=== PATIENT | female | born 1945 | race Caucasian/White ===

== ENCOUNTER → 2016-10-04 | Outpatient (CLI) | payer MEDICARE ==
--- NOTE | 2016-10-04 09:48 | CT ---
EXAMINATION TYPE: CT abdomen pelvis w con DATE OF EXAM: 10/04/2016 8:55 AM COMPARISON: NONE INDICATION: Mid abd pain DLP: 438 mGycm, Automated exposure control for dose reduction was used. CONTRAST: 100 mL of Omnipaque 300. Study performed with Oral Contrast TECHNIQUE: Axial images were obtained from above the diaphragm to the pubic rami in the axial plane a t 5 mm thick sections. Reconstructed images are reviewed on the computer in the coronal plane. FINDINGS: Limited CT sections are obtained the lung bases. The lung bases are clear. CT ABDOMEN: Liver: Normal Spleen: Normal Pancreas: Normal Adrenal glands: The adrenal glands are normal. Gallbladder: Normal Kidneys: No masses are evident. No hydronephrosis is present. There is a 2.1 cm cyst measuring 9 [place] units on the anterior lateral left mid kidney. Couple of tiny cortical renal cysts are prese nt on the right kidney, the largest in the anterior portion measuring 8 mm approximately 30 Hounsfiel d units, this is too small to reliably classify as a simple cyst. Delayed images were obtained throu gh the kidneys, which remain otherwise unremarkable. Aorta: Vascular calcification is within the aorta. Inferior vena cava: Normal. CT PELVIS: Bilateral inguinal lymph nodes are present measuring 1.0-1.1 cm each There is some thickening of the sigmoid colon most notably within its proximal portion. This could al so be related to incomplete distention. Inflammatory change adjacent identified. Significant divertic ulosis is not evident. There are loops of bowel which are incompletely distended or lack oral contras t limiting their evaluation. Appendix: Not identified Urinary bladder: Normal. Genitourinary structures: Uterus and ovaries are not identified. No free fluid is within the pelvis. Osseous structures: No suspicious lytic or sclerotic lesions. Scoliosis and degenerative disc changes are at the thoracolumbar junction bone islands within the right femoral head IMPRESSIONS: 1. There may be some mild colitis of the proximal sigmoid colon. This could be related to incomplete distention. Correlate with the patient's symptoms. 2. Couple of enlarged inguinal lymph nodes present bilaterally. 3. Renal cysts
== END | disposition home or self-care (01) ==
LOC: RADCTMAIN 08:18
PROVIDERS: ATTEND Family Medicine
DX: N28.1 Cyst of kidney, acquired (principal); R60.0 Localized edema; R10.9 Unspecified abdominal pain
CPT/HCPCS: 74177; Q9967

== ENCOUNTER 2017-04-13 07:26 | Day surgery (SDC) | payer MEDICARE ==
[2017-04-07 12:18] VITALS: BMI 27.0
[~2017-04-13 07:26] MED LIST: LACTATED RINGERS 1,000 ML IV SCH; LIDOCAINE 1% 20 ML VIAL (10MG/ML) FOR IV START INTRADERMA PRN
[2017-04-13 07:48] VITALS: RESP 16; TEMP 97.6
[2017-04-13] MEDS ORDERED: PROPOFOL 10 MG/ML 20 ML VIAL IV ONE (09:06)
[2017-04-13] MEDS ORDERED: LIDOCAINE 1% INJ 10MG/ML (20 ML MDV) ONE (09:06)
--- NOTE | 2017-04-13 09:10 | P.GSHP ---
History of Present Illness H&P Date: 04/13/17 Chief Complaint: GERD This a 71-year-old female referred from Dr. day. Patient has safer EGD. She's had issues with GERD. Past Medical History Past Medical History: GERD/Reflux, Hyperlipidemia, Hypertension, Thyroid Disorder Additional Past Medical History / Comment(s): shingles 01/2015 History of Any Multi-Drug Resistant Organisms: None Reported Past Surgical History: Hysterectomy, Orthopedic Surgery Additional Past Surgical History / Comment(s): right shoulder surgery, Colonoscopy-12/01/16 Past Anesthesia/Blood Transfusion Reactions: No Reported Reaction Smoking Status: Former smoker - Past Family History Father Family Medical History: Cancer Medications and Allergies Home Medications Medication Instructions Recorded Confirmed Type Aspirin 325 mg PO DAILY 11/25/16 04/13/17 History Cholecalciferol [Vitamin D3] 2,000 unit PO DAILY 11/25/16 04/13/17 History Chromium Picolinate 1,000 mcg PO DAILY 11/25/16 04/13/17 History Estradiol [Estrace] 1 mg PO DAILY 11/25/16 04/13/17 History Fexofenadine HCl [Melissa Allergy] 60 mg PO DAILY 11/25/16 04/13/17 History Krill Oil 500 mg PO DAILY 11/25/16 04/13/17 History Meloxicam 15 mg PO DAILY 11/25/16 04/13/17 History S-Adenosylmethionine Sul Tosyl 200 mg PO DAILY 11/25/16 04/13/17 History [Monty-E] Ubidecarenone [Co Q-10] 30 mg PO DAILY 11/25/16 04/13/17 History amLODIPine [Norvasc] 10 mg PO DAILY 11/25/16 04/13/17 History Famotidine [Pepcid] 20 mg PO DAILY 04/07/17 04/13/17 History Levothyroxine Sodium [Synthroid] 125 mcg PO DAILY 04/07/17 04/13/17 History Losartan Potassium 100 mg PO DAILY 04/07/17 04/13/17 History Pantoprazole [Protonix] 40 mg PO DAILY 04/07/17 04/13/17 History buPROPion HCL [buPROPion HCL SR] 150 mg PO BID 04/07/17 04/13/17 History Allergies Allergy/AdvReac Type Severity Reaction Status Date / Time No Known Allergies Allergy Verified 04/13/17 07:44 Surgical - Exam Vital Signs Temp Pulse Resp BP 97.6 F 92 16 127/68 04/13/17 07:47 04/13/17 07:47 04/13/17 07:47 04/13/17 07:47 - General well developed, no distress - Eyes PERRL - ENT normal pinna - Neck no masses - Respiratory normal expansion - Cardiovascular Rhythm: regular - Abdomen Abdomen: soft, non tender Assessment and Plan Plan: GERD. We'll perform EGD.
--- NOTE | 2017-04-13 09:17 | P.OP ---
Date of Procedure: 04/13/17 Preoperative Diagnosis: GERD Postoperative Diagnosis: Antral gastritis Hiatal hernia Mild esophagitis Procedure(s) Performed: EGD Implants: Anesthesia: MAC Surgeon: Efrem Nina Pathology: other (Antrum, esophagus) Condition: stable Disposition: PACU Indications for Procedure: Operative Findings: Description of Procedure: The patient's placed on the endoscopy table in the lateral position. She received IV sedation. The gastroscope some placed oropharynx passed in the esophagus and stomach. Scope was then placed through the pylorus. The first and second portion of the duodenum appeared normal. The scope was then brought back into the antrum and this is minimally inflated biopsies performed. Scope was retroflexed and there was a hiatal hernia. The GE junction was at 38 cm. The distal esophagus appeared mildly inflamed a biopsies performed. The proximal esophagus appeared normal. Scope was withdrawn from patient.
[2017-04-13 09:45] VITALS: BP 112/68; PULSE 83
== END 2017-04-13 09:51 | disposition home or self-care (01) ==
LOC: ORWHC2ENDO 07:26
PROVIDERS: ATTEND Surgery
DX: K29.50 Unspecified chronic gastritis without bleeding (principal); K21.0 Gastro-esophageal reflux disease with esophagitis; K44.9 Diaphragmatic hernia without obstruction or gangrene; E78.5 Hyperlipidemia, unspecified; E07.9 Disorder of thyroid, unspecified; J44.9 Chronic obstructive pulmonary disease, unspecified; I10 Essential (primary) hypertension; Z79.82 Long term (current) use of aspirin; Z79.899 Other long term (current) drug therapy; Z87.891 Personal history of nicotine dependence
CPT/HCPCS: 88305; 88342; 43239; J2001; J2704

== ENCOUNTER 2017-05-03 11:36 | Day surgery (SDC) | payer MEDICARE ==
[2017-04-27 10:05] VITALS: BMI 27.0
[~2017-05-03 11:36] MED LIST changes: +DEXAMETHASONE SOD PHOSPHATE 10 MG/ML 1 ML VIAL IV ONE; +HEPARIN SODIUM,PORCINE 5,000 UNIT/ML 1 ML VIAL SQ ONE; +ONDANSETRON 4 MG/2 ML VIAL IVP ONE; +ceFAZolin 2 GM in SODIUM CHLORIDE 0.9% 100 ML IVPB ONE
--- NOTE | 2017-05-03 13:40 | P.GSHP ---
History of Present Illness H&P Date: 05/03/17 Chief Complaint: GERD This is a 71-year-old female for from Dr. Estefani day.The patient has had long- standing problems with reflux esophagitis. The patient underwent recent EGD is found have evidence of esophagitis. Patient has been well informed on the procedure of laparoscopic Jonna fundoplication. The patient is aware the risk of the conversion to the open procedure, risk of injury to the stomach, liver and spleen. The patient is also a risk of recurrent GERD and dysphagia symptoms. The patient understands there is a postoperative diet of full liquids for 2 weeks after surgery. - Constitutional Constitutional: Reports as per HPI Past Medical History Past Medical History: GERD/Reflux, Hyperlipidemia, Hypertension, Thyroid Disorder Additional Past Medical History / Comment(s): HIATAL HERNIA. shingles 01/2015 History of Any Multi-Drug Resistant Organisms: None Reported Past Surgical History: Hysterectomy, Orthopedic Surgery Additional Past Surgical History / Comment(s): EGD 04-13-17. right shoulder surgery, Colonoscopy-12/01/16 Past Anesthesia/Blood Transfusion Reactions: No Reported Reaction Smoking Status: Former smoker - Past Family History Father Family Medical History: Cancer Medications and Allergies Home Medications Medication Instructions Recorded Confirmed Type Aspirin 325 mg PO DAILY 11/25/16 04/27/17 History Cholecalciferol [Vitamin D3] 2,000 unit PO DAILY 11/25/16 04/27/17 History Chromium Picolinate 1,000 mcg PO DAILY 11/25/16 04/27/17 History Estradiol [Estrace] 1 mg PO DAILY 11/25/16 04/27/17 History Fexofenadine HCl [Melissa Allergy] 60 mg PO DAILY 11/25/16 04/27/17 History Krill Oil 500 mg PO DAILY 11/25/16 04/27/17 History Meloxicam 15 mg PO DAILY 11/25/16 04/27/17 History S-Adenosylmethionine Sul Tosyl 200 mg PO DAILY 11/25/16 04/27/17 History [Monty-E] Ubidecarenone [Co Q-10] 30 mg PO DAILY 11/25/16 04/27/17 History amLODIPine [Norvasc] 10 mg PO DAILY 11/25/16 04/27/17 History Famotidine [Pepcid] 20 mg PO DAILY 04/07/17 04/27/17 History Levothyroxine Sodium [Synthroid] 125 mcg PO DAILY 04/07/17 04/27/17 History Losartan Potassium 100 mg PO DAILY 04/07/17 04/27/17 History Pantoprazole [Protonix] 40 mg PO DAILY 04/07/17 04/27/17 History buPROPion HCL [buPROPion HCL SR] 150 mg PO BID 04/07/17 04/27/17 History Calcium Carbonate/Vitamin D3 1 tab PO DAILY 04/27/17 04/27/17 History [Calcium 600-Vit D3 200 Tablet] Simvastatin [Zocor] 20 mg PO DAILY 04/27/17 04/27/17 History Allergies Allergy/AdvReac Type Severity Reaction Status Date / Time No Known Allergies Allergy Verified 04/27/17 10:00 Surgical - Exam - General well developed, no distress - Eyes PERRL - ENT normal pinna - Neck no masses - Respiratory normal expansion - Cardiovascular Rhythm: regular - Abdomen Abdomen: soft, non tender Assessment and Plan Plan: GERD. We will perform laparoscopic Jonna fundoplication.
[2017-05-03] MEDS ORDERED: MIDAZOLAM 2 MG/2 ML VIAL IVP ONE (13:45)
[2017-05-03] MEDS ORDERED: LACTATED RINGERS 1,000 ML IV ONE ×2 (13:45→16:38)
[2017-05-03] MEDS ORDERED: SUCCINYLCHOLINE CHLORIDE 100 MG/5 ML SYR IV ONE (14:38)
[2017-05-03] MEDS ORDERED: PROPOFOL 10 MG/ML 20 ML VIAL IV ONE (14:38)
[2017-05-03] MEDS ORDERED: GLYCOPYRROLATE 0.2 MG/ML 2 ML VIAL ONE (14:38)
[2017-05-03] MEDS ORDERED: PHENYLEPHRINE-0.9% NACL SYG 1 MG/10 ML SYRINGE ONE (14:38)
[2017-05-03] MEDS ORDERED: VECURONIUM 10 MG VIAL IV ONE (14:38)
[2017-05-03] MEDS ORDERED: fentaNYL (PF) 50 MCG/ML 2 ML AMP ONE (14:38)
[2017-05-03] MEDS ORDERED: NEOSTIGMINE 1 MG/ML 10 ML VIAL ONE (14:38)
[2017-05-03] MEDS ORDERED: LIDOCAINE 1% INJ 10MG/ML (20 ML MDV) ONE (14:38)
[2017-05-03] MEDS ORDERED: BUPIVACAINE (PF) 0.25% 30 ML VIAL SQ ONE ×2 (15:05→15:07)
[2017-05-03] MEDS ORDERED: LIDOCAINE 2%-EPI 1:100,000 20 ML VIAL SQ ONE ×2 (15:05→15:07)
[2017-05-03] MEDS ORDERED: HYDROmorphone 1 MG/ML 1 ML SYRINGE IVP PRN (15:45)
--- NOTE | 2017-05-03 15:45 | P.OP ---
Date of Procedure: 05/03/17 Preoperative Diagnosis: GERD Postoperative Diagnosis: GERD Procedure(s) Performed: Laparoscopic Jonna fundoplication Implants: Anesthesia: CHERYLE Surgeon: Efrem Nina Estimated Blood Loss (ml): 5 Pathology: none sent Condition: stable Disposition: PACU Indications for Procedure: Operative Findings: Description of Procedure: HThe patient was placed on the operating table in the supine position. The patient received general anesthesia. And was placed in dorsal lithotomy position. The patient was prepped and draped in the usual sterile fashion. The skin incision sites were anesthetized with 1% local Xylocaine. The skin was incised in the left periumbilical area and then using a blade less 5 mm trocar under direct visualization panel cavity was entered. After adequate insufflation the laparoscope was then placed into the peritoneal cavity. Next a 5 mm trochars placed in the right epigastric position. Another 5 millimeter trocar the right lateral position. Another 5 millimeter trocar in the left lateral position a 5 mm trocar is placed in the left epigastric position. And then the initial 5 mm trocar was exchanged for a 10 mm trocar. The left lateral lobe liver was retracted. The hernia was seen. The crural defect was then dissected using the Harmonic scissors device. A 360 crural dissection was performed the esophagus stomach was reduced back into the peritoneal Cavity. The crural defect was then closed using 2-0 Ethibond suture. Next the fundus of the stomach was mobilized using the [place] scissors device. and then a 58-Iraqi bougie dilator was placed oropharynx passed into the esophagus and stomach the fundal plication wrap was then performed by grasping the fundus posteriorly and bringing it around the esophagus and stomach fundoplication was then performed using 2-0 Ethibond suture. Care was taken that the fundal location rested over top of the intra-abdominal esophagus. There was no injury seen to the stomach or esophagus. The dilator was then withdrawn. The abdomen was irrigated there is no bleeding seen. The trochars were then withdrawn and then skin incision sites were closed using 3-0 Monocryl suture Steri-Strips are applied. Patient thought procedure well and sent to recovery room in stable condition.
[2017-05-03] MEDS: HYDROmorphone 1 MG/ML 1 ML SYRINGE IVP PRN ×2 (15:51→16:00)
[2017-05-03] MEDS: D5-0.45% NACL WITH KCL 20MEQ/L 1,000 ML IV SCH (18:32)
[2017-05-04] MEDS: D5-0.45% NACL WITH KCL 20MEQ/L 1,000 ML IV SCH ×2 (03:46→08:23)
[2017-05-04] MEDS ORDERED: ENOXAPARIN 40 MG/0.4 ML SYRINGE SQ SCH (09:00)
--- NOTE | 2017-05-04 09:38 | FL ---
EXAMINATION TYPE: FL UGI w esophagus DATE OF EXAM: 05/04/2017 COMPARISON: NONE HISTORY: Jonna, postoperative state. TECHNIQUE: A single contrast UGI study is performed. 37 seconds of fluoroscopy time was utilized. FINDINGS: The esophagus shows delayed subsequent emptying into the stomach. No evidence of hiatal hernia or st ricture noted. Small outpouching is seen medial to the gastric fundus. Contrast within this outpouchi ng is nonmobile, and therefore unrelated to a leak. The stomach shows normal distensibility, peristalsis, and mucosal folds. No significant gastroesopha geal reflux was seen during real time performance of this study. The duodenal bulb is unremarkable. IMPRESSION: Postoperative edema. No evidence of obstruction or leak. Study.
[2017-05-04] MEDS ORDERED: ACETAMINOPHEN TAB 325 MG TAB PO PRN (10:55)
--- NOTE | 2017-05-04 11:45 | P.DS ---
Providers Date of admission: 05/03/17 Expected date of discharge: 05/04/17 Attending physician: Efrem Nina Consults: 05/03/17 15:45 Consult Physician Routine Consulting Provider: Grant Hernandez Consult Reason/Comments: Medical management Do you want consulting provider notified?: Yes Primary care physician: Estefani [facility] Course: 71-year-old female who primary care providers Dr.ira day who has a history of reflex esophagitis. Patient underwent a recent EGD and was found to have evidence of esophagitis. Patient was seen by surgical service elected to proceed with the procedure of a laparoscopic Jonna fundoplication for treatment of reoccurring symptomatic reflux esophagitis. The procedure was done on May 03 there were no postop events patient was felt to be hemodynamically stable and appropriate proceed with a discharge to home. Patient did receive postoperative diet instructions was to be maintained on a full liquid diet for 2 weeks after surgery Impression discharge diagnosis Status post May 03 laparoscopic Jonna fundoplication for symptomatic esophagitis reflux History of hiatal hernia Esophageal reflex Hypertension Hyperlipidemia The above impression and plan of care have been discussed and directed by signing physician. Elyse Winter nurse practitioner acting as scribe for signing physician. Plan - Discharge Summary New Discharge Prescriptions: Continue Aspirin 325 mg PO DAILY Cholecalciferol [Vitamin D3] 2,000 unit PO DAILY Fexofenadine HCl [Melissa Allergy] 60 mg PO DAILY amLODIPine [Norvasc] 10 mg PO DAILY Meloxicam 15 mg PO DAILY Estradiol [Estrace] 1 mg PO DAILY Ubidecarenone [Co Q-10] 30 mg PO DAILY S-Adenosylmethionine Sul Tosyl [Monty-E] 200 mg PO DAILY Krill Oil 500 mg PO DAILY Chromium Picolinate 1,000 mcg PO DAILY Levothyroxine Sodium [Synthroid] 125 mcg PO DAILY Famotidine [Pepcid] 20 mg PO DAILY buPROPion HCL [buPROPion HCL SR] 150 mg PO BID Pantoprazole [Protonix] 40 mg PO DAILY Losartan Potassium 100 mg PO DAILY Calcium Carbonate/Vitamin D3 [Calcium 600-Vit D3 200 Tablet] 1 tab PO DAILY Simvastatin [Zocor] 20 mg PO DAILY Discharge Medication List Aspirin 325 mg PO DAILY 11/25/16 [History] Cholecalciferol [Vitamin D3] 2,000 unit PO DAILY 11/25/16 [History] Chromium Picolinate 1,000 mcg PO DAILY 11/25/16 [History] Estradiol [Estrace] 1 mg PO DAILY 11/25/16 [History] Fexofenadine HCl [Melissa Allergy] 60 mg PO DAILY 11/25/16 [History] Krill Oil 500 mg PO DAILY 11/25/16 [History] Meloxicam 15 mg PO DAILY 11/25/16 [History] S-Adenosylmethionine Sul Tosyl [Monty-E] 200 mg PO DAILY 11/25/16 [History] Ubidecarenone [Co Q-10] 30 mg PO DAILY 11/25/16 [History] amLODIPine [Norvasc] 10 mg PO DAILY 11/25/16 [History] Famotidine [Pepcid] 20 mg PO DAILY 04/07/17 [History] Levothyroxine Sodium [Synthroid] 125 mcg PO DAILY 04/07/17 [History] Losartan Potassium 100 mg PO DAILY 04/07/17 [History] Pantoprazole [Protonix] 40 mg PO DAILY 04/07/17 [History] buPROPion HCL [buPROPion HCL SR] 150 mg PO BID 04/07/17 [History] Calcium Carbonate/Vitamin D3 [Calcium 600-Vit D3 200 Tablet] 1 tab PO DAILY 07/04 [History] Simvastatin [Zocor] 20 mg PO DAILY 04/27/17 [History] Follow up Appointment(s)/Referral(s): Efrem Nina MD [STAFF PHYSICIAN] - 1 Week Estefani Wright DO [Primary Care Provider] - 1 Week Activity/Diet/Wound Care/Special Instructions: Postprocedure liquid diet for 2 weeks Discharge Disposition: HOME SELF-CARE
[2017-05-04 11:53] VITALS: BP 136/78; PULSE 104; RESP 16; TEMP 97.4
--- NOTE | 2017-05-04 12:38 | P.CONS ---
History of Present Illness - Reason for Consult Consult date: 05/04/17 Medical management Requesting physician: Efrem Nina - Chief Complaint Status post Jonna fundal plication - History of Present Illness This is a 71-year-old female with a known history of hypertension, hyperlipidemia and hypothyroidism. She presents the hospital for a niece and publication. Surgery was completed yesterday. She tolerated surgery well with no complications. She tolerating a clear liquid diet. The upper GI with the esophagus shows postop edema with no evidence of obstruction or leak. Patient denies any chest pain or shortness of breath. Denies any nausea or vomiting. She is passing gas no bowel movement yet. Denies any burning with urination. Surgeries planning discharged afternoon. Review of Systems Please refer to HPI otherwise unremarkable Past Medical History Past Medical History: GERD/Reflux, Hyperlipidemia, Hypertension, Thyroid Disorder Additional Past Medical History / Comment(s): HIATAL HERNIA. shingles 01/2015 History of Any Multi-Drug Resistant Organisms: None Reported Past Surgical History: Hysterectomy, Orthopedic Surgery Additional Past Surgical History / Comment(s): EGD 04-13-17. right shoulder surgery, Colonoscopy-12/01/16 Past Anesthesia/Blood Transfusion Reactions: No Reported Reaction Past Psychological History: No Psychological Hx Reported Smoking Status: Former smoker Past Alcohol Use History: None Reported Additional Past Alcohol Use History / Comment(s): QUIT SMOKING 2009 Past Drug Use History: None Reported - Past Family History Father Family Medical History: Cancer Medications and Allergies Home Medications Medication Instructions Recorded Confirmed Type Aspirin 325 mg PO DAILY 11/25/16 05/03/17 History Cholecalciferol [Vitamin D3] 2,000 unit PO DAILY 11/25/16 05/03/17 History Chromium Picolinate 1,000 mcg PO DAILY 11/25/16 05/03/17 History Estradiol [Estrace] 1 mg PO DAILY 11/25/16 05/03/17 History Fexofenadine HCl [Melissa Allergy] 60 mg PO DAILY 11/25/16 05/03/17 History Krill Oil 500 mg PO DAILY 11/25/16 05/03/17 History Meloxicam 15 mg PO DAILY 11/25/16 05/03/17 History S-Adenosylmethionine Sul Tosyl 200 mg PO DAILY 11/25/16 05/03/17 History [Monty-E] Ubidecarenone [Co Q-10] 30 mg PO DAILY 11/25/16 05/03/17 History amLODIPine [Norvasc] 10 mg PO DAILY 11/25/16 05/03/17 History Famotidine [Pepcid] 20 mg PO DAILY 04/07/17 05/03/17 History Levothyroxine Sodium [Synthroid] 125 mcg PO DAILY 04/07/17 05/03/17 History Losartan Potassium 100 mg PO DAILY 04/07/17 05/03/17 History Pantoprazole [Protonix] 40 mg PO DAILY 04/07/17 05/03/17 History buPROPion HCL [buPROPion HCL SR] 150 mg PO BID 04/07/17 05/03/17 History Calcium Carbonate/Vitamin D3 1 tab PO DAILY 04/27/17 05/03/17 History [Calcium 600-Vit D3 200 Tablet] Simvastatin [Zocor] 20 mg PO DAILY 04/27/17 05/03/17 History Allergies Allergy/AdvReac Type Severity Reaction Status Date / Time adhesive tape AdvReac Rash/Hives Verified 05/03/17 14:12 Physical Exam Vitals: Vital Signs Temp Pulse Pulse Pulse Resp BP Pulse Ox 05/04/17 11:30 97.4 F L 104 H 16 136/78 95 05/04/17 08:12 96.9 F L 106 H 14 126/73 95 05/04/17 05:22 100 20 154/81 95 05/04/17 00:00 16 05/03/17 21:48 98 F 112 H 16 137/67 96 05/03/17 20:30 93 20 05/03/17 19:48 113 H 141/72 94 L 05/03/17 18:48 93 129/77 97 05/03/17 18:18 106 H 151/101 05/03/17 17:48 82 142/64 95 05/03/17 17:33 95 138/79 96 05/03/17 17:18 104 H 138/86 86 L 05/03/17 16:57 97.3 F L 87 16 119/61 89 L 05/03/17 16:30 89 16 148/72 92 L 05/03/17 16:15 92 16 150/67 94 L 05/03/17 16:00 85 16 144/67 100 05/03/17 15:45 96 16 140/64 100 05/03/17 15:38 97.8 F 102 H 10 L 148/67 100 05/03/17 14:00 65 16 127/76 93 L 05/03/17 13:45 97.0 F L 67 16 157/96 93 L Intake and Output 05/03/17 05/04/17 05/04/17 22:59 06:59 14:59 Intake Total 1050 200 480 Output Total 755 2150 375 Balance 295 -1950 105 Intake: IV 850 Oral 200 200 480 Output: Urine 750 2150 375 Estimated Blood Loss 5 Other: Voiding Method Toilet Toilet # Voids 1 1 Weight 64.864 kg 64.864 kg Patient Weight 05/05/17 06:59 Weight 64.864 kg Head normocephalic Neck supple Lungs clear to auscultation bilaterally no wheezing or crackles Heart regular rate and rhythm S1-S2, no rub or gallop Abdomen is soft nontender nondistended positive bowel sounds no hepatosplenomegaly Extremities no edema Neuro alert and orientated to 3 Assessment and Plan Plan: 1. GERD: Status post Jonna for complication. Upper GI shows postop edema. No evidence of obstruction or leak. Surgical service has cleared her for discharge 2. Essential hypertension: Blood pressure stable continue home medications 3. Hypothyroidism continue Synthroid 4. Hyperlipidemia continue statin Thank you for this consultation. Patient is medically stable for discharge. We 'll have her follow-up with her PCP in 1 week. Time with Patient: Greater than 30 (Greater than 50% of the total time spent in counseling and coordination of care.I performed an examination of the patient and discussed their management with the physician Roofing Subcontractor. I have reviewed the Physician Roofing Subcontractor's notes and agree with the documented findings and plan of care)
== END 2017-05-04 12:12 | disposition home or self-care (01) ==
LOC: OR 11:36 → 6PED 15:38 → OR 05-04 12:12
PROVIDERS: ATTEND Surgery
DX: K21.0 Gastro-esophageal reflux disease with esophagitis (principal); I10 Essential (primary) hypertension; E78.5 Hyperlipidemia, unspecified; R13.10 Dysphagia, unspecified; E03.9 Hypothyroidism, unspecified; K44.9 Diaphragmatic hernia without obstruction or gangrene; Z87.891 Personal history of nicotine dependence; Z79.82 Long term (current) use of aspirin; Z79.899 Other long term (current) drug therapy; Z90.710 Acquired absence of both cervix and uterus
CPT/HCPCS: 93005; 74240; 43280; J2250; J1644; J1100; J2710; Q9967; J0690; J2405; J2001; J1650; J3010; J1170; J2370; J0330; J2704

== ENCOUNTER 2019-08-27 07:36 | Day surgery (SDC) | payer MEDICARE ==
[2019-08-23 09:36] VITALS: BMI 27.7
[~2019-08-27 07:36] MED LIST changes: -HEPARIN SODIUM,PORCINE 5,000 UNIT/ML 1 ML VIAL SQ ONE; -ONDANSETRON 4 MG/2 ML VIAL IVP ONE; -ceFAZolin 2 GM in SODIUM CHLORIDE 0.9% 100 ML IVPB ONE
[2019-08-27 08:21] VITALS: RESP 16; TEMP 97.7
[2019-08-27] MEDS ORDERED: LIDOCAINE 1% INJ 10MG/ML (20 ML MDV) ONE (08:53)
[2019-08-27] MEDS ORDERED: PROPOFOL 10 MG/ML 20 ML VIAL IV ONE (08:53)
--- NOTE | 2019-08-27 08:56 | P.GSHP ---
History of Present Illness H&P Date: 08/27/19 Chief Complaint: dysphagia this a 73-year-old female with history of dysphagia. Patient has previous repair of hiatal hernia. she presents today for EGD. Past Medical History Past Medical History: GERD/Reflux, Hyperlipidemia, Hypertension, Thyroid Disorder Additional Past Medical History / Comment(s): HX-HIATAL HERNIA. shingles 01/2015 History of Any Multi-Drug Resistant Organisms: None Reported Past Surgical History: Hernia Repair, Hysterectomy, Orthopedic Surgery Additional Past Surgical History / Comment(s): EGD 04-13-17. right shoulder surgery, Colonoscopy-12/01/16. hiatal hernia repair Past Anesthesia/Blood Transfusion Reactions: No Reported Reaction Smoking Status: Former smoker - Past Family History Father Family Medical History: Cancer Medications and Allergies Home Medications Medication Instructions Recorded Confirmed Type Aspirin 325 mg PO DAILY 11/25/16 08/27/19 History Cholecalciferol [Vitamin D3 (25 5,000 unit PO DAILY 11/25/16 08/27/19 History Mcg = 1000 Iu)] Estradiol [Estrace] 1 mg PO DAILY 11/25/16 08/27/19 History Meloxicam 15 mg PO DAILY 11/25/16 08/27/19 History Ubidecarenone [Co Q-10] 400 mg PO DAILY 11/25/16 08/27/19 History amLODIPine [Norvasc] 10 mg PO DAILY 11/25/16 08/27/19 History Levothyroxine Sodium [Synthroid] 125 mcg PO DAILY 04/07/17 08/27/19 History Losartan Potassium 100 mg PO DAILY 04/07/17 08/27/19 History Pantoprazole [Protonix] 40 mg PO DAILY 04/07/17 08/27/19 History buPROPion HCL [buPROPion HCL SR] 150 mg PO DAILY 04/07/17 08/27/19 History Simvastatin [Zocor] 20 mg PO DAILY 04/27/17 08/27/19 History Chromium Picolinate 1,000 mcg PO DAILY 08/23/19 08/27/19 History Fexofenadine HCl [Melissa Allergy] 180 mg PO DAILY 08/23/19 08/27/19 History S-Adenosylmethionine Sul Tosyl 200 mg PO DAILY 08/23/19 08/27/19 History [Monty-E] Vitamin B Complex 1 each PO DAILY 08/23/19 08/27/19 History traMADol HCL [Ultram] 50 mg PO BID 08/23/19 08/27/19 History Allergies Allergy/AdvReac Type Severity Reaction Status Date / Time adhesive tape AdvReac Rash/Hives Verified 08/27/19 08:08 Surgical - Exam Vital Signs Temp Pulse Resp BP Pulse Ox 97.7 F 100 16 142/67 97 08/27/19 08:20 08/27/19 08:20 08/27/19 08:20 08/27/19 08:20 08/27/19 08:20 - General well developed, well nourished, no distress - Eyes PERRL - ENT normal pinna - Neck no masses - Respiratory normal expansion - Cardiovascular Rhythm: regular - Abdomen Abdomen: soft, non tender Assessment and Plan Assessment: history of dysphagia. We'll perform EGD.
--- NOTE | 2019-08-27 09:07 | P.OP ---
Date of Procedure: 08/27/19 Preoperative Diagnosis: dysphagia Postoperative Diagnosis: antral gastritis Possible GE junction stricture Procedure(s) Performed: EGD Anesthesia: MAC Surgeon: Efrem Nina Pathology: other (antrum) Condition: stable Disposition: PACU Description of Procedure: the patient's placed on the endoscopy table in the lateral position. She received IV sedation. The gastroscope placed oropharynx passed in the esophagus and into the stomach. Scope was then placed through the pylorus. The first and second portion of the duodenum. Normal. Scope was then brought back the antrum this is minimally inflamed. Biopsies performed. There was a possible healing antral ulcer. This area is biopsied as well. Scope was unretroflexed and remainder stomach appeared normal. The plication wrap may have slipped slightly off of the GE junction. Thegastroscope was then brought back slowly GE junction. A 20 mm balloon was held across the GE junction. No obvious suture was seen. The balloon was then removed. The esophagus appeared normal. Scope was withdrawn for patient.
[2019-08-27 09:46] VITALS: BP 112/68; PULSE 85
== END 2019-08-27 09:44 | disposition home or self-care (01) ==
LOC: ORWHC2ENDO 07:36
PROVIDERS: ATTEND Surgery
DX: R13.10 Dysphagia, unspecified (principal); K29.50 Unspecified chronic gastritis without bleeding; E78.5 Hyperlipidemia, unspecified; I10 Essential (primary) hypertension; E07.9 Disorder of thyroid, unspecified; Z90.710 Acquired absence of both cervix and uterus; Z87.891 Personal history of nicotine dependence; Z80.9 Family history of malignant neoplasm, unspecified; Z79.1 Long term (current) use of non-steroidal anti-inflammatories (NSAID); Z79.82 Long term (current) use of aspirin; Z79.890 Hormone replacement therapy; Z79.891 Long term (current) use of opiate analgesic; Z79.899 Other long term (current) drug therapy; Z91.09 Other allergy status, other than to drugs and biological substances; Z97.2 Presence of dental prosthetic device (complete) (partial)
CPT/HCPCS: 88305; 43239; 43249; J2001; J2704; C1726

== ENCOUNTER 2021-08-26 09:05 | Day surgery (SDC) | payer MEDICARE ==
[2021-08-24 15:28] VITALS: BMI 25.4
[~2021-08-26 09:05] MED LIST changes: -DEXAMETHASONE SOD PHOSPHATE 10 MG/ML 1 ML VIAL IV ONE; +LIDOCAINE 1% (10MG/ML) FOR IV START INTRADERMA PRN; -LIDOCAINE 1% 20 ML VIAL (10MG/ML) FOR IV START INTRADERMA PRN
[2021-08-26 09:55] VITALS: RESP 16; TEMP 97.5
[2021-08-26] MEDS ORDERED: PROPOFOL 10 MG/ML 20 ML VIAL IV ONE (10:44)
[2021-08-26] MEDS ORDERED: LIDOCAINE 1% INJ 10MG/ML (20 ML MDV) ONE (10:44)
--- NOTE | 2021-08-26 10:46 | P.GSHP ---
History of Present Illness H&P Date: 08/26/21 Chief Complaint: Anemia Cyst 75-year-old female undergoing workup for anemia. Patient is today for EGD and colonoscopy. Past Medical History Past Medical History: GERD/Reflux, Hyperlipidemia, Hypertension, Thyroid Disorder Additional Past Medical History / Comment(s): HX-HIATAL HERNIA. shingles 01/2015 History of Any Multi-Drug Resistant Organisms: None Reported Past Surgical History: Hernia Repair, Hysterectomy, Orthopedic Surgery Additional Past Surgical History / Comment(s): EGD 04-13-17. right shoulder surgery, Colonoscopy-12/01/16. hiatal hernia repair Past Anesthesia/Blood Transfusion Reactions: No Reported Reaction Smoking Status: Former smoker - Past Family History Father Family Medical History: Cancer Medications and Allergies Home Medications Medication Instructions Recorded Confirmed Type Aspirin 325 mg PO DAILY 11/25/16 08/24/21 History Cholecalciferol [Vitamin D3 (25 250 mcg PO DAILY 11/25/16 08/24/21 History Mcg = 1000 Iu)] Meloxicam 15 mg PO DAILY 11/25/16 08/24/21 History Ubidecarenone [Co Q-10] 200 mg PO DAILY 11/25/16 08/24/21 History amLODIPine [Norvasc] 10 mg PO HS 11/25/16 08/24/21 History estradioL [Estrace] 1 mg PO HS 11/25/16 08/24/21 History Levothyroxine Sodium [Synthroid] 125 mcg PO HS 04/07/17 08/24/21 History Losartan Potassium 100 mg PO HS 04/07/17 08/24/21 History Pantoprazole [Protonix] 40 mg PO HS 04/07/17 08/24/21 History buPROPion HCL [buPROPion HCL SR] 150 mg PO HS 04/07/17 08/24/21 History Simvastatin [Zocor] 20 mg PO HS 04/27/17 08/24/21 History Chromium Picolinate 1,000 mcg PO DAILY 08/23/19 08/24/21 History Fexofenadine HCl [Melissa Allergy] 180 mg PO DAILY 08/23/19 08/24/21 History traMADol HCL [Ultram] 50 mg PO BID 08/23/19 08/24/21 History Ferrous Sulfate [Feosol] 325 mg PO DAILY 08/24/21 08/24/21 History Krill Oil 500 mg PO DAILY 08/24/21 08/24/21 History S-Adenosylmethionine Sul Tosyl 200 mg PO DAILY 08/24/21 08/24/21 History [Monty-E] Allergies Allergy/AdvReac Type Severity Reaction Status Date / Time adhesive tape AdvReac Rash/Hives Verified 08/24/21 15:15 Surgical - Exam Vital Signs Temp Pulse Resp BP Pulse Ox 97.5 F L 89 16 149/88 95 08/26/21 09:53 08/26/21 09:53 08/26/21 09:53 08/26/21 09:53 08/26/21 09:53 - General well developed, well nourished, no distress - Eyes PERRL - ENT normal pinna - Neck no masses - Respiratory normal expansion - Cardiovascular Rhythm: regular - Abdomen Abdomen: soft, non tender Assessment and Plan Assessment: Anemia. We will evaluate upper and lower endoscopy for GI bleed.
--- NOTE | 2021-08-26 11:17 | P.OP ---
Date of Procedure: 08/26/21 Preoperative Diagnosis: Anemia Postoperative Diagnosis: Erosive esophagitis Large hiatal hernia Procedure(s) Performed: EGD Colonoscopy Anesthesia: MAC Surgeon: Efrem Nina Pathology: other (Antrum, esophagus) Condition: stable Disposition: PACU Description of Procedure: The patient's placed on the endoscopy table in the lateral position. She received IV sedation. The gastroscope patient oropharynx passed in the esophagus and into the stomach. Scope was placed through the pylorus. The first and second portion of the duodenum appeared normal. Scope was brought back the antrum this was mildly inflamed. A random biopsies performed. Scope was then retroflexed the remainder of the stomach appeared normal. There was a large hiatal hernia. The GE junction was at 37 cm. The distal esophagus had evidence of erosive esophagitis. The proximal esophagus appeared normal. The scope withdrawn for patient. Next digital rectal exam was performed this revealed no abnormalities. The flexible colonoscope was then placed patient anus asked throughout the entire colon. The ileocecal valve was visualized. There was a large amount of liquid stool limited the view of the mucosa. The ascending colon appeared normal. The trans-colon appeared normal. The descending colon appeared normal. The sigmoid colon had a few scattered diverticula. The scope was then brought back the rectum and this is normal. Scope withdrawn for patient. The patient's anemia may be due to her erosive esophagitis/hiatal hernia
[2021-08-26 11:21] VITALS: PULSE 78
[2021-08-26 11:49] VITALS: BP 138/75
== END 2021-08-26 12:17 ==
LOC: ORWHC2ENDO 09:05
PROVIDERS: ATTEND Surgery
DX: K29.50 Unspecified chronic gastritis without bleeding (principal); K31.A19 Gastric intestinal metaplasia without dysplasia, unspecified site; K44.9 Diaphragmatic hernia without obstruction or gangrene; K22.10 Ulcer of esophagus without bleeding; K57.30 Diverticulosis of large intestine without perforation or abscess without bleeding; D64.9 Anemia, unspecified; K21.9 Gastro-esophageal reflux disease without esophagitis; E78.5 Hyperlipidemia, unspecified; I10 Essential (primary) hypertension; E07.9 Disorder of thyroid, unspecified; Z86.19 Personal history of other infectious and parasitic diseases; Z90.710 Acquired absence of both cervix and uterus; Z98.890 Other specified postprocedural states; Z87.891 Personal history of nicotine dependence; Z97.2 Presence of dental prosthetic device (complete) (partial); Z80.9 Family history of malignant neoplasm, unspecified; Z79.1 Long term (current) use of non-steroidal anti-inflammatories (NSAID); Z79.82 Long term (current) use of aspirin; Z79.890 Hormone replacement therapy; Z79.891 Long term (current) use of opiate analgesic; Z79.899 Other long term (current) drug therapy; Z91.09 Other allergy status, other than to drugs and biological substances
CPT/HCPCS: 88305; 45378; 43239; J2001; J2704

== ENCOUNTER → 2021-09-10 | Outpatient (CLI) | payer MEDICARE ==
--- NOTE | 2021-09-10 12:09 | FL ---
EXAMINATION TYPE: FL UGI air w esophagus DATE OF EXAM: 09/10/2021 LIMITED UGI-ESOPHAGRAM: CLINICAL HISTORY: Acid reflux symptoms or epigastric pain for 3 months. History of hiatal hernia rep air surgery 5 years ago. TECHNIQUE: Limited esophagram is performed utilizing 20 oz of Omnipaque 350. A total of 41 seconds o f fluoroscopic time was utilized during procedure and 58 images obtained. FINDINGS: The patient swallowed contrast without difficulty or delay. Some underlying esophageal dys motility with abnormal contractions seen and diminished flow at diaphragmatic hiatus into the stomach . There is good flow of contrast along the diaphragmatic hiatus into the stomach, there is no evidenc e of contrast extravasation to suggest leak. Recurrent small size hiatal hernia is seen. Mild gastroe sophageal reflux seen during real-time performance of study. Patient remains asymptomatic without inc reased symptoms. IMPRESSION: Recurrent small sized hiatal hernia. Underlying esophageal dysmotility with mild/moderate gastroesophageal reflux.
== END | disposition home or self-care (01) ==
LOC: RADUSWWP 09:37
PROVIDERS: ATTEND Surgery
DX: K21.9 Gastro-esophageal reflux disease without esophagitis (principal)
CPT/HCPCS: 74246